=== PATIENT | female | born 1955 | race Caucasian/White ===

== ENCOUNTER 2020-08-08 19:32 | Emergency (ER) | payer MEDICARE ==
[~2020-08-08] VITALS: Ht 167.6 cm; Wt 81.8 kg
[2020-08-08 19:41] VITALS: TEMP 98.1
[2020-08-08 20:47] LABS: COLLECTION METHOD CLEAN CATCH
[2020-08-08 21:01] LABS: BASO # 0.1 (0.0-0.2); BASO % 0.8 % (0.0-2.0); EOS # 0.5 (0.0-0.7); EOS % 5.4 % (0-4.0); GRAN # 4.4 (1.4-6.5); GRAN % 53.6 % (42.2-75.2); HEMATOCRIT 38.5 % (37.0-47.0); HEMOGLOBIN 12.4 g/dl (12.5-16.0); LYMPH # 2.6 (1.2-3.4); MEAN CELL VOLUME 92 fl (80.0-100.0); MEAN CORPUSCULAR HEMOGLOBIN 30 pg (27.0-31.0); MEAN CORPUSCULAR HGB CONC 32 g/dl (33.0-37.0); MEAN PLATELET VOLUME 9.7 fl (7.4-10.4); MONO # 0.7 (0.1-0.6); MONO % 8.5 % (1.7-9.3); PLATELET COUNT 216 K/mm3 (130-400); RED BLOOD COUNT 4.17 M/mm3 (4.10-5.30); REDCELL DISTRIBUTION WIDTH-CV 12.5 % (11.5-14.5)
[2020-08-08 21:03] LABS: PH 7 (5-8); SQUAMOUS EPITHELIAL None Seen /hpf; URINE APPEARANCE Clear; URINE BACTERIA None Seen /hpf; URINE BILIRUBIN Negative (NEGATIVE); URINE BLOOD 1+ (NEGATIVE); URINE COLOR Straw; URINE GLUCOSE Negative (NEGATIVE); URINE KETONE Negative (NEGATIVE); URINE LEUKOCYTE ESTERASE Negative (NEGATIVE); URINE NITRATE Negative (NEGATIVE); URINE PROTEIN(semi-quant) Negative (NEGATIVE); URINE RBC 0-2 /hpf; URINE UROBILINOGEN Negative (NEGATIVE)
[2020-08-08 21:15] LABS: ALBUMIN 4.3 gm/dL (3.5-5.0); BILIRUBIN,TOTAL 0.3 mg/dL (0.0-1.0); CALCIUM 9.7 mg/dL (8.4-10.2); CREATININE, serum 1.06 (0.52-1.25); POTASSIUM 3.6 mmol/L (3.4-5.0); TOTAL PROTEIN 7.7 gm/dL (6.4-8.2)
[2020-08-08] MEDS ORDERED: NORVASC 10MG10 MG PO (22:26)
[2020-08-08] MEDS ORDERED: LIPITOR20 MG PO (22:26)
[2020-08-08] MEDS ORDERED: COREG 6.256.25 MG/TA PO (22:27)
[2020-08-08] MEDS ORDERED: HCTZ 25MG TAB25 MG PO (22:27)
[2020-08-08] MEDS ORDERED: APRESOLINE 25MG25 MG PO (22:27)
[2020-08-08] MEDS ORDERED: COZAAR100 MG PO ×2 (22:28→22:32)
[2020-08-08] MEDS ORDERED: ROBAXIN 50500 MG/TAB PO ×2 (22:30→22:50)
[2020-08-08] MEDS ORDERED: TYLENOL 325MG325 MG PO ×2 (22:30→22:50)
[2020-08-08] MEDS ORDERED: LIDODERM 5% PATC1 EA TP ×2 (22:30→22:50)
[2020-08-08] MEDS ORDERED: PRILOSEC 20MG20 MG PO (22:32)
[2020-08-08] MEDS ORDERED: ASPIRIN 81M81 MG/TA2 PO (22:32)
[2020-08-08 22:43] VITALS: BP 154/70; PULSE 77
== END 2020-08-08 22:54 | disposition home or self-care (01) ==
LOC: COL.ER 19:32
PROVIDERS: Emergency Medicine; Nurse Practitioner
DX: S22.080A Wedge compression fracture of T11-T12 vertebra, initial encounter for closed fracture (principal); Z88.0 Allergy status to penicillin; Z88.2 Allergy status to sulfonamides; Z88.5 Allergy status to narcotic agent; Z79.82 Long term (current) use of aspirin; X50.0XXA Overexertion from strenuous movement or load, initial encounter
CPT/HCPCS: J1885